=== PATIENT | male | born 1935 | race Caucasian/White ===

== ENCOUNTER 2018-01-29 14:30 | Inpatient (IN) ==
[2018-01-29 14:43] VITALS: BMI 21.7
[2018-01-29] MEDS ORDERED: ACETAMINOPHEN 325 MG TABLET PO PRN (16:36)
[2018-01-29] MEDS ORDERED: ONDANSETRON 4 MG/2 ML INJECTION IVP PRN (16:36)
[2018-01-29] MEDS ORDERED: WARFARIN - PHARMACY CONSULT MC ONE (16:40)
--- NOTE | 2018-01-29 16:56 | History & Physical Report ---
History of Present Illness Date: 01/29/18 Chief complaint: SOA, b/l PE HPI: Patient is an 83-year-old male who was a direct admit from in [place] due to bilateral pulmonary emboli and right lower leg DVT. Patient started noticing significant shortness of air 2 days ago. Yesterday he noticed that his leg was hurting and today when he told his his leg was swollen, they sought treatment at the [place] ER. Patient had a TURP done by Dr. Ascencio on January 16. Because he was having quite a bit of hematuria following the procedure , he was off of his Coumadin for at least a good week per his 's report. Patient reports he is generally in good health. He lives at home independently with his . He was feeling well other than recovering from his TURP. He did not require oxygen while in [place], and has not required oxygen since his arrival here. In [place] ER patient had a CTA of the chest showing some dependent atelectasis and numerous pulmonary emboli in the bilateral upper and lower lobes. Chest x- ray showed hyperexpansion of the lungs but no acute cardiopulmonary disease. His INR was 1.28. White count was elevated at 20.7. Creatinine was 1.58, BUN 24 , sodium 138, potassium 4.5, calcium 8.6. BNP is elevated at 12,557. CRP elevated at 143. Lactate was normal at 1.9. D-dimer was elevated at 3250. Troponin was elevated at 0.4 (normal range 0-0.05). Venous Doppler revealed DVT involving the right popliteal artery. He had calf vein thrombus within the anterior tibial venous system and posterior tibial venous system. He received his first dose of Lovenox 1mg/kg in [place] this am. Patient was evaluated in the CCU. He currently has no complaints. He states if he exerts himself he will become short of breath and when he is up on the leg it hurts, otherwise he has no complaints other than he is hungry and thirsty. He has not urinated since 5:00 this morning, but he has not had much to drink because he has been in the emergency room the entire day. He does not void large amounts at a time since his TURP, although, he is voiding more now than he was prior to his surgery. Review of Systems All systems PM: 10-point ROS was reviewed, no additional remarkable complaints except (shortness of air with exertion. Pain in the right leg with ambulation.) Past Medical History Medical History Updates: Atrial fibrillation, chronic anticoagulation, hypertension, hyperlipidemia, BPH Surgical History: TURP, hernia repair Family History: brother - colon cancer brother - brain tumor mom - colon or stomach cancer sister - breast cacncer dad - of [place] Family History: As Above - Social History Smoking status: Former smoker (quit 14 years ago. states he was never a heavy smoker.) Substance use type: does not use Alcohol intake frequency: former alcohol drinker (rare) Housing: house Household members: spouse Current occupational status: other (owns appliance repair shop) Social history: 2nd marriage. Has 3 daughters. PCP - Dr. Fernández Bleach Maker - Dr. Wagner Oncologist - Dr. Dixon (Pt doesn't think he has ever had cancer. Doesn't know why he sees Dr. Dixon.) Medications Home Medications Medication Instructions Recorded Confirmed Type Aspirin [Low Dose Aspirin EC] 81 mg PO DAILY 01/29/18 01/29/18 History Metoprolol Succinate 25 mg PO DAILY 01/29/18 01/29/18 History Pravastatin [Pravachol] 10 mg PO HS 01/29/18 01/29/18 History Tamsulosin [Flomax] 0.4 mg PO 01/29/18 01/29/18 History Warfarin [Coumadin] 5 mg PO 1900 01/29/18 01/29/18 History Allergies Allergy/AdvReac Type Severity Reaction Status Date / Time No Known Drug Allergies Allergy Unknown Verified 11/20/11 12:10 Exam Vital Signs: Temperature 99.7 F 01/29/18 14:40 Pulse Rate 83 01/29/18 14:40 Respiratory Rate 20 01/29/18 14:40 Blood Pressure 126/60 01/29/18 14:40 Pulse Oximetry 94 01/29/18 14:40 Height/Weight/BMI: Height 1.88 m Weight 76.9 kg Body Mass Index 21.7 - Constitutional Present: no acute distress, well nourished, well developed - Routine HEENT Exam Head: Present: normocephalic, atraumatic Eye: Present: EOMI, PERRL ENT: Present: mucous membranes moist, oropharynx clear - Routine Neck Exam Present: supple. Absent: lymphadenopathy, thyromegaly - Routine Respiratory Exam Present: CTA bilaterally. Absent: respiratory distress, wheezes - Routine Cardiovascular Exam Present: RRR, murmur - Routine Abdominal Exam Present: soft, normoactive bowel sounds. Absent: tenderness, distended - Routine Extremities Exam Present: edema (RLE), no edema (LLE), normal capillary refill, calf tenderness ( right) - Routine Skin Exam Present: dry, warm - Routine Neurological Exam Present: alert, oriented X3, CN II-XII intact - Routine Psychiatric Exam Present: normal affect, cooperative Results - Labs CBC & Chem 7: 01/29/18 17:17 01/29/18 17:16 Labs: See HPI for outside lab reports - Imaging and Cardiology Chest x-ray Additional comments: see HPI for CXR and CTA chest results Assessment and Plan Assessment and Plan: Assessment Multiple b/l pulmonary emboli and RLL DVT (likely r/t recent surgery and holding anticoagulant) s/p TURP (01.16.[address] Ascencio) Leukocytosis - POA (20) Elevated troponin - POA HTN HLD atrial fibrillation - chronic anticoagulation (coumadin) BPH Plan Admit, CCU. PCP: Dr. Fernández Reviewed outside labs/imaging. (See HPI) Continue coumadin (pharmacy to manage) and Lovenox 1mg/kg BID. O2 if needed - not requiring O2 at this time. Trend troponins. Consider echo. Repeat CBC, BMP, check UA. Defer blood cultures or repeat lactate as pt has no other SIRS criteria beyond leukocytosis Bladder scan PRN given risk of urinary retention w/ recent TURP. Full code. His , Marybeth, is his DPOA-H. Home meds were not reconciled as they were not updated by nursing staff at time of documentation. DVT Prophylaxis: Lovenox, Coumadin Resuscitation Status: Full Code - Physician Narrative Physician: Sandra Godfrey MD Narrative: Date: 01/29/18 Time: 1800 Mr. Hernandez was seen with his at the bedside-she provides most of the hx. He had prostate surgery recently for BPH-he has specifically been told he did not have prostate cancer. Preoperatively and postoperatively warfarin was hold with instructions to resume usual dose yesterday. For the past 3-5 days he's noted swelling in his right leg and exertional dyspnea on top of fatigue he's experienced since surgery. His reports decreased activity level since surgery. Evaluation in the emergency room is as outlined above leading to identification of left popliteal and left anterior/posterior thrombosis in addition to bilateral upper and lower lung PEs. Patient reports minimal chest pain/pleuritic pain unless he takes a really deep breath. NAD, alert; oxygen saturation 94% on room air. Respirations nonlabored, no focal abnormalities on auscultation of lungs, diminished airflow throughout, no wheezing Regular rhythm, S1-S2; moderate edema below the knee right lower extremity Chest x-ray in [place] reported to show hyperexpansion of the lungs but no acute process, venous Doppler and CTA as described above. EKG reviewed by myself demonstrating sinus rhythm with an old inferior FL, LAFB, incomplete RBBB. Laboratory data notable for d-dimer of 3250, proBNP of 12,557, elevated CRP, and modestly elevated troponin at 0.4. PE/DVT Paroxysmal atrial fibrillation Anticoagulation with Lovenox 1 mg/kg subcutaneous every 12 hours-patient/ advised she will need to overlap Lovenox/warfarin for 5 days minimum. Given upcoming weekend I anticipate discharging with Lovenox to continue through Sunday. Resume warfarin at 5 mg daily-monitor INR. Daily INRs. Echocardiogram pending to assess right heart pressures. Transfer records reviewed. Hospital Course Summary Disclaimer: The visit summary below is not to be considered part of the above Progress Note. Hospital Course: 01/29/18 Admit, CCU. PCP: Dr. Fernández Reviewed outside labs/imaging. (See HPI) Continue coumadin (pharmacy to manage) and Lovenox 1mg/kg BID. O2 if needed - not requiring O2 at this time. Trend troponins. Consider echo. Repeat CBC, BMP, check UA. Defer blood cultures or repeat lactate as pt has no other SIRS criteria beyond leukocytosis Bladder scan PRN given risk of urinary retention w/ recent TURP. Full code. His , Marybeth, is his DPOA-H. Home meds were not reconciled as they were not updated by nursing staff at time of documentation.
--- NOTE | 2018-01-29 17:46 | Pharmacy Consult ---
Pharmacy Consult-Warfarin - Laboratory Information 01/29/18 17:16 INR 1.40 H WARFARIN THERAPY: 83yo M admitted with bilateral PE and a DVT secondary to anticoagulation being held post TURP that resulted in Hematuria. On Enoxaparin 77mg SQ BID (1mg/kg). LFT WNL's Albumin = 3.8 Hgb Hct WNL's Home dose of Warfarin stated as 5mg daily for his A. Fib. Will restart it at that dosage tonight yet and adjust as needed. Target INR = 2 -3 Thank you
[2018-01-29] MEDS ORDERED: WARFARIN 5 MG TABLET PO SCH (18:00)
[2018-01-29] MEDS: ENOXAPARIN 80 MG/0.8 ML INJECTION SQ SCH (18:31)
[2018-01-29] MEDS: TAMSULOSIN 0.4 MG CAPSULE PO SCH (20:41)
[2018-01-29] MEDS: PRAVASTATIN 10 MG TABLET PO SCH (20:41)
--- NOTE | 2018-01-30 08:26 | Progress Note ---
- Date 01/30/18 Subjective: Patient is an 83-year-old male who was a direct admit from in [place] due to bilateral pulmonary emboli and right lower leg DVT. Patient started noticing significant shortness of air 2 days ago. The day prior to admission, he noticed that his leg was hurting and on the day of admission when he told his his leg was swollen, they sought treatment at the [place] ER. Patient had a TURP done by Dr. Ascencio on January 16. Because he was having quite a bit of hematuria following the procedure, he was off of his Coumadin for at least a good week per his 's report. Patient reports he is generally in good health. He lives at home independently with his . He was feeling well other than recovering from his TURP. He did not require oxygen while in [place], and has not required oxygen since his arrival here. In [place] ER patient had a CTA of the chest showing some dependent atelectasis and numerous pulmonary emboli in the bilateral upper and lower lobes. Chest x- ray showed hyperexpansion of the lungs but no acute cardiopulmonary disease. His INR was 1.28. White count was elevated at 20.7. Creatinine was 1.58, BUN 24 , sodium 138, potassium 4.5, calcium 8.6. BNP is elevated at 12,557. CRP elevated at 143. Lactate was normal at 1.9. D-dimer was elevated at 3250. Troponin was elevated at 0.4 (normal range 0-0.05). Venous Doppler revealed DVT involving the right popliteal artery. He had calf vein thrombus within the anterior tibial venous system and posterior tibial venous system. He received his first dose of Lovenox 1mg/kg in [place] this am. Pt seen by me this am sitting in the chair. He complains of right LE pain. He has not been walking on it. He denies SOA at rest but is concerned he may be SOA with walking. He has had very little urination on his own. He was straight cathed last night with 600cc out. He denies fever or chills. No Cough or sputum. No n/v. No BM since admission but is passing flatus. Objective Vital signs: Temperature 98.2 F 01/29/18 20:00 Pulse Rate 86 01/30/18 07:00 Respiratory Rate 17 01/30/18 07:00 Blood Pressure 101/58 01/30/18 07:00 Pulse Oximetry 92 01/30/18 07:00 Height/Weight/BMI: Height 1.88 m Weight 76.9 kg Body Mass Index 21.7 Comments: Gen: alert and oriented. NAD. Pleasant and conversive Skin: warm and dry. HEENT: NC/AT PERRL, EOMI, sclera, lids and conjunctiva wnl. MMM. OP clear. Neck: supple, No JVD, Carotids 2+ without bruits. Lungs: diminished. clear. No rales, rhonchi or wheezes Heart: regular. 2/6 murmur LSB Abdomen: soft. NT/ND. +BS. MS: good strength and ROM. 1+edema on the right. Right leg painful with movement Neuro: no focal deficit Psy: appropriate mood and affect. Results - Labs CBC & Chem 7: 01/30/18 04:22 01/30/18 04:22 Assessment and Plan Assessment and Plan: Assessment/Plan? Multiple b/l pulmonary emboli and RLL DVT (likely r/t recent surgery and holding anticoagulant) -Lovenox and coumadin for 5 day overlap -TTE s/p TURP (4.. by Dr[address] Ascencio) -Continues with urinary retention -Straight cath as needed -Flomax Leukocytosis - POA (20) -?CLL pt not sure but does see Dr. Zavala Elevated troponin - POA -Likely due to PE HTN -well controlled on home metoprolol succinate 25mg daily HLD -On pravastatin atrial fibrillation - chronic anticoagulation (coumadin) -Coumadin BPH -Flomax -Bladder scan and straight cath as needed Pt to move to floor today, increase activity. PCP Dr. Fernández Full code DPOA Marybeth - Physician Narrative Narrative: Date: 01/30/18 Time: 0820 Hospital Course Summary Disclaimer: The visit summary below is not to be considered part of the above Progress Note. Hospital Course: 01/29/18 Admit, CCU. PCP: Dr. Fernández Reviewed outside labs/imaging. (See HPI) Continue coumadin (pharmacy to manage) and Lovenox 1mg/kg BID. O2 if needed - not requiring O2 at this time. Trend troponins. Consider echo. Repeat CBC, BMP, check UA. Defer blood cultures or repeat lactate as pt has no other SIRS criteria beyond leukocytosis Bladder scan PRN given risk of urinary retention w/ recent TURP. Full code. His , Marybeth, is his DPOA-H. Home meds were not reconciled as they were not updated by nursing staff at time of documentation.
--- NOTE | 2018-01-30 08:33 | Pharmacy Consult ---
Pharmacy Consult-Warfarin - Laboratory Information 01/29/18 01/30/18 17:16 04:22 INR 1.40 H 1.45 H - Consult Information SILAS CONSULT (Recurring): 83 yr old male 6'2" 76.9 kg admitted for Bilateral PE and right leg DVT Patient home med is Warfarin 5 mg daily. Patient is currently on Enoxaparin 77 mg sq BID. Patient was off his warfarin for a about a week per due to a recent TURP procedure. Date INR Dose 01/29/18 1.40 5 mg 01/30/18 1.45 Will give 7.5 mg today Thank you. Aylin Correa, PharmD
[2018-01-30] MEDS: ASPIRIN *EC* 81 MG TABLET PO SCH (08:44)
[2018-01-30] MEDS: ENOXAPARIN 80 MG/0.8 ML INJECTION SQ SCH ×2 (08:45→21:33)
[2018-01-30] MEDS ORDERED: WARFARIN 7.5 MG TABLET PO SCH (12:00)
--- NOTE | 2018-01-30 13:25 | Echocardiogram ---
DATE OF PROCEDURE January 29, [address] Sandra Godfrey This is a two-dimensional echo with spectral Doppler, color-flow and M-mode. It was obtained in a patient with bilateral PEs. Left atrial dimension is normal. Left ventricular end-diastolic dimension is normal. Left ventricle wall thickness is increased. LV systolic function is normal with ejection fraction of about 55%. Right atrium is dilated. Right ventricle is normal with normal function. Aortic root dimension is mildly increased at 4 cm. Mitral valve is morphologically normal with mild mitral regurgitation. Aortic valve is a trileaflet structure with mild aortic insufficiency. Tricuspid valve shows [id number] tricuspid regurgitation with moderate pulmonary hypertension with estimated pulmonary artery systolic pressure of 57. Pulmonary valve shows no pulmonary insufficiency. There is no pericardial effusion. IMPRESSION 1. Normal LV systolic function with ejection fraction of 55%. 2. Right atrial dilation. 3. Concentric left ventricular hypertrophy. 4. Mild aortic root dilation at 4 cm. 5. Mild mitral regurgitation. 6. Mild aortic insufficiency. 7. [id number] tricuspid regurgitation with moderate pulmonary hypertension with estimated pulmonary artery systolic pressure of 57. MTDD
[2018-01-30] MEDS: PRAVASTATIN 10 MG TABLET PO SCH (21:33)
[2018-01-30] MEDS: TAMSULOSIN 0.4 MG CAPSULE PO SCH (21:33)
[2018-01-31 04:54] VITALS: RESP 16
--- NOTE | 2018-01-31 06:41 | Pharmacy Consult ---
Pharmacy Consult-Warfarin - Laboratory Information 01/29/18 01/29/18 01/29/18 17:16 17:16 17:17 Hgb 15.0 Hct 46.7 INR 1.40 H AST 24 ALT 15 Albumin 3.8 01/30/18 01/30/18 01/31/18 04:22 04:22 04:50 Hgb 13.5 Hct 41.1 D INR 1.45 H 1.76 H AST ALT Albumin - Consult Information Coumadin Therapy: Day 3 COUMADIN CONSULT (Recurring): 83 yr old male 6'2" 76.9 kg admitted for Bilateral PE and right leg DVT. Patient home med is Warfarin 5 mg daily. Patient is currently on Enoxaparin 77 mg sq BID. Patient was off his warfarin for a about a week per due to a recent TURP procedure. Date INR Dose 01/29/18 1.40 5 mg 01/30/18 1.457 5 mg 01/31/18 1.76 Will give 6 mg today Thank you for the Warfarin Dosing Protocol, Godfrey Marcano, Pharmacist.
[2018-01-31 07:53] VITALS: BP 124/65; PULSE 83; TEMP 98.4; O2SAT 92
[2018-01-31] MEDS: ASPIRIN *EC* 81 MG TABLET PO SCH (08:44)
[2018-01-31] MEDS: ENOXAPARIN 80 MG/0.8 ML INJECTION SQ SCH (08:45)
[2018-01-31] MEDS ORDERED: WARFARIN 6 MG TABLET PO SCH (12:00)
--- NOTE | 2018-01-31 13:02 | Discharge Summary ---
Discharge Information Date of admission: 01/30/18 10:58 Anticipated date of discharge: 01/31/18 Attending Physician: Sandra Godfrey MD Primary care physician: Isiah Fernández MD Bilateral pulmonary emboli DVT of right popliteal vein extending into the anterior and posterior tibial venous systems. - Laboratory Labs: 01/31/18 04:50 01/30/18 04:22 - Radiology Radiology: Transthoracic Echocardiogram 01/29/18 IMPRESSION 1. Normal LV systolic function with ejection fraction of 55%. 2. Right atrial dilation. 3. Concentric left ventricular hypertrophy. 4. Mild aortic root dilation at 4 cm. 5. Mild mitral regurgitation. 6. Mild aortic insufficiency. 7. [id number] tricuspid regurgitation with moderate pulmonary hypertension with estimated pulmonary artery systolic pressure of 57. History of Present Illness HPI: Patient is an 83-year-old male who was a direct admit from in [place] due to bilateral pulmonary emboli and right lower leg DVT. Patient started noticing significant shortness of air 2 days ago. Yesterday he noticed that his leg was hurting and today when he told his his leg was swollen, they sought treatment at the [place] ER. Patient had a TURP done by Dr. Ascencio on January 16. Because he was having quite a bit of hematuria following the procedure , he was off of his Coumadin for at least a good week per his 's report. Patient reports he is generally in good health. He lives at home independently with his . He was feeling well other than recovering from his TURP. He did not require oxygen while in [place], and has not required oxygen since his arrival here. In [place] ER patient had a CTA of the chest showing some dependent atelectasis and numerous pulmonary emboli in the bilateral upper and lower lobes. Chest x- ray showed hyperexpansion of the lungs but no acute cardiopulmonary disease. His INR was 1.28. White count was elevated at 20.7. Creatinine was 1.58, BUN 24 , sodium 138, potassium 4.5, calcium 8.6. BNP is elevated at 12,557. CRP elevated at 143. Lactate was normal at 1.9. D-dimer was elevated at 3250. Troponin was elevated at 0.4 (normal range 0-0.05). Venous Doppler revealed DVT involving the right popliteal artery. He had calf vein thrombus within the anterior tibial venous system and posterior tibial venous system. He received his first dose of Lovenox 1mg/kg in [place] this am. Patient was evaluated in the CCU. He currently has no complaints. He states if he exerts himself he will become short of breath and when he is up on the leg it hurts, otherwise he has no complaints other than he is hungry and thirsty. He has not urinated since 5:00 this morning, but he has not had much to drink because he has been in the emergency room the entire day. He does not void large amounts at a time since his TURP, although, he is voiding more now than he was prior to his surgery. Objective Vital signs: Temperature 98.4 F 01/31/18 07:50 Pulse Rate 83 01/31/18 07:50 Respiratory Rate 16 01/31/18 07:50 Blood Pressure 124/65 01/31/18 07:50 Pulse Oximetry 92 01/31/18 07:50 Height/Weight/BMI: Height 1.88 m Weight 75.4 kg Body Mass Index 21.7 Comments: Gen: alert and oriented. NAD. Pleasant and conversive Skin: warm and dry. HEENT: NC/AT PERRL, EOMI, sclera, lids and conjunctiva wnl. MMM. OP clear. Neck: supple, No JVD, Carotids 2+ without bruits. Lungs: diminished. clear. No rales, rhonchi or wheezes Heart: regular. 2/6 murmur LSB Abdomen: soft. NT/ND. +BS. MS: good strength and ROM. trace to 1+edema on the right. Neuro: no focal deficit Psy: appropriate mood and affect. Hospital Course This is a general summary of the patient's hospital course. For more details refer to the complete medical record. Hospital course: Patient was admitted and started on therapeutic Lovenox as well as the initiation of Coumadin oral anticoagulation. He did have some initial pain and that right leg with ambulation but by the time he was ready for discharge it was tolerable and he was walking around without any problems. He had persistent hematuria throughout his stay likely related to his recent TURP. Initially he did have some urinary retention requiring straight cathing but did start urinating on his own. Flomax was initiated. He had persistent leukocytosis but this is not new. He sees Dr. Zavala in [place] and thinks it might be related to CLL but he is not sure. He says Dr. Zavala is not concerned. Patient's vital signs remain stable and he remained afebrile throughout his stay with no worries some signs of infection. He was eager to be discharged was felt to be stable to do so. He is going to be going home with Lovenox 75 mg sub Q BID until INR greater than 2 and 5 day overlap with Lovenox and Coumadin. The 5 days will be over Sunday. He is scheduled to have an INR drawn on Sunday at Dr. Fernández's office and Dr. Salazar will manage his Coumadin dosing. If he is therapeutic on Sunday he still cannot stop his Lovenox until his last dose Sunday night. He will likely benefit from follow-up of his CBC and white blood cells as well to make sure they are stable. I suspect he already has a follow- up appointment to the urologist. Despite the hematuria his hemoglobin has been stable. The patient was given 7.5 mg of Coumadin on 01/30/18 and 6 mg on 01/31/18. His INR on 01/29/18 was 1.4, 01/30/18 1.45, 01/31/18 1.76. He will be going home on 5 mg daily to be adjusted according to the INR's with the goal of 2 to 3. Time spent with patient: 25 - 35 minutes Resuscitation Status: Full Code Discharge Plan - Discharge Disposition Discharge Date: 01/31/18 Disposition: Discharged Home, Self-Care *Condition: Stable Reason For Visit (Visit label in EMR): b/l PE, DVT, elevated troponin - Discharge Medications *Discharge Medications: New Enoxaparin Sodium [Lovenox] 75 mg SQ BID syringe Warfarin [Coumadin] 5 mg PO 1700 #20 tab Continue Tamsulosin [Flomax] 0.4 mg PO HS Pravastatin [Pravachol] 10 mg PO HS Metoprolol Succinate 25 mg PO DAILY Aspirin [Low Dose Aspirin EC] 81 mg PO DAILY Discontinued Warfarin [Coumadin] 5 mg PO 1900 - Discharge Packet/Instructions *Diet: As tolerated, avoid leafy green vegetables *Activity: As tolerated *Pain Management/Treatment: Tylenol *Wound Care: N/A *Expected Signs/Symptoms: Worsening urine bleeding or increased Shortness of breath. Watch for black tarry stools or blood in your stools *Notify Physician if: Black tarry stools, blood in the stool, worsening blood in the urine *During Business Hours Contact: Dr. Fernández *After Business Hours Contact: call taker MD for Dr. Fernández *Pending Lab/Results: No Pending Lab - Referrals/Follow Up *Referrals/Follow Up: Isiah Fernández MD [Family Provider] - (Pt to go in on Sat to Dr. Fernández's office for an INR and Dr. Fernández will contact the pt for dosing of the coumadin and subsequent follow up. ) - Patient Handouts Patient Handouts: Pulmonary Embolism (DC), Deep Vein Thrombosis (DC) - Dismissal Complete Discharge Instructions are:: Complete Physician Narrative - Narrative Attestation Narrative: Date: 01/31/18 Time: [id number]
== END 2018-01-31 14:00 | disposition home or self-care (01) | DRG 176 ==
LOC: CCU 14:30 → INTOOBSV 16:33 → MED 01-30 10:02
PROVIDERS: ADMIT Internal Medicine; ATTEND Internal Medicine